=== PATIENT | female | born 1985 | race Caucasian/White ===

== ENCOUNTER → 2016-09-20 | Outpatient (CLI) | payer BC ==
[2016-09-20 10:33] LABS: CLARITY,URINE CLEAR (CLEAR); GLUCOSE, URINE (UA) NEGATIVE (NEG); NITRATE,URINE NEGATIVE (NEG); OCCULT BLOOD,URINE SMALL (NEG); PH,URINE 6.5 (5.0-8.5); PROTEIN,URINE NEGATIVE (NEG); URINE SAMPLE TYPE CLEAN CATCH URINE
[2016-09-20 10:34] LABS: BACTERIA,URINE MODERATE; BILIRUBIN,URINE NEGATIVE (NEG); LEUKOCYTE ESTERASE ,URINE SMALL (NEG); SQUAMOUS EPITHELIAL CELL,UR MODERATE; UROBILINOGEN,URINE 0.2 mg/dL (0.2)
== END ==
LOC: LAB 09:38
PROVIDERS: ATTEND Nurse Practitioner Family
DX: R30.0 Dysuria (principal)
CPT/HCPCS: 81001; 87088

== ENCOUNTER 2016-09-29 07:06 | Day surgery (SDC) | payer BC ==
[~2016-09-29 07:06] MED LIST: LIDOCAINE W/ SODIUM BICARB 0.5 ML SYR ONE; Lactated Ringers 1,000 ML PRIMARY IV ONE; ceFAZolin Inj 2gm (Premix) 50 ML IV ONE
[2016-09-29] MEDS ORDERED: LIDOCAINE MPF 2% - 5 ML (20 MG/1 ML) ONE (07:08)
[2016-09-29] MEDS ORDERED: MIDAZOLAM 5 MG/1 ML ONE (07:09)
[2016-09-29] MEDS ORDERED: fentaNYL Inj 250 MCG/5 ML VIAL ONE (07:09)
[2016-09-29] MEDS ORDERED: ROCURONIUM 10 MG/1 ML - 5 ML VIAL IVP ONE (07:09)
[2016-09-29 07:27] LABS: URINE SPECIFIC GRAVITY - MAN 1.009
[2016-09-29] MEDS ORDERED: BUPIVACAINE 0.5% W/ EPI - 10 ML VIAL ONE (07:44)
[2016-09-29] MEDS ORDERED: ONDANSETRON 4 MG/2 ML VIAL IVP PRN ×2 (08:21→09:33)
[2016-09-29] MEDS ORDERED: NORMAL SALINE 10 ML SYRINGE FLUSH IVP PRN ×2 (08:21→09:33)
[2016-09-29] MEDS ORDERED: KETOROLAC 30 MG/1 ML VIAL ONE (08:28)
[2016-09-29] MEDS ORDERED: SUGAMMADEX SODIUM 200 MG/2 ML VIAL IV ONE (08:28)
[2016-09-29] MEDS ORDERED: Lactated Ringers 1,000 ML PRIMARY IV SCH (08:30)
[2016-09-29] MEDS ORDERED: Lactated Ringers 1,000 ML PRIMARY IV ONE (08:55)
[2016-09-29] MEDS: HYDROmorphone 2 MG/1 ML IVP PRN ×2 (09:30→09:40)
[2016-09-29] MEDS ORDERED: HYDROmorphone 2 MG/1 ML ONE (09:31)
--- NOTE | 2016-09-29 09:32 | GEN.OPNOTE ---
Operative Note Surgery Date: 09/29/16 Preoperative Diagnosis: Incarcerated incisional hernia. Postoperative Diagnosis: Incarcerated incisional hernia. Procedure: Reduction and repair of incarcerated incisional hernia. Surgeon: Nathaniel Mendes MD Anesthesia Provider: John Barriga CRNA Anesthesia Type: General Estimated Blood Loss (mL): 10 Fluids: 1200 mL of crystalloid. 2 g of IV Ancef. 30 mg of IV and 30 mg of IM Toradol at the end of the procedure. Pathology: No specimens. Indications: Symptomatic incisional hernia at the umbilicus. Prior laparoscopy. Findings: Incisional hernia at the umbilicus. A second hernia above. Complications: None. Operative Summary: The patient was taken to the operating suite and placed on the operating table in the supine position. Following induction of general anesthetic the abdomen was prepped and draped in a sterile fashion. A surgical timeout was done. A curvilinear incision was made below the umbilicus. The umbilicus was detached from the fascia. The hernia sac was identified. Dissection was carried down to the fascia. The hernia sac was inverted through the defect. The incarcerated contents were preperitoneal fat. The fascial edges were trimmed back to adequate tissue. There was a second hernia above the first defect. This was also incorporated in the other hernia. All tissue was excised making 1 defect in the midline. The fascial defect was closed down the midline with running #1 Prolene. The repair was solid. The base of the umbilicus was attached to the fascia with a 2-0 Vicryl. Several inverted interrupted 2-0 Vicryl's were placed in the deep dermis. The skin was closed with inverted interrupted 4-0 Monocryl followed by Dermabond, Steri-Strips and a cotton ball in the umbilicus. A sterile bandage was placed over all the above and taped into position. The patient tolerated the entire procedure well without complication. She was taken to the recovery area in stable condition. All counts were correct.
[2016-09-29] MEDS ORDERED: MORPHINE SULFATE 2 MG/1 ML IVP PRN (09:33)
[2016-09-29] MEDS ORDERED: HYDROcodone-APAP 5 MG -325 MG TABLET PO PRN (09:33)
[2016-09-29] MEDS ORDERED: HYDROcodone-APAP 5 MG -325 MG TABLET PO ONE (09:54)
[2016-09-29] MEDS ORDERED: ONDANSETRON 4 MG/2 ML VIAL ONE (11:17)
[2016-09-29 13:11] VITALS: RESP 14
[2016-09-29 13:14] VITALS: TEMP 97
== END 2016-09-29 12:19 | disposition home or self-care (01) ==
LOC: SDSC 07:06
PROVIDERS: ATTEND Surgery
DX: K43.0 Incisional hernia with obstruction, without gangrene (principal)
CPT/HCPCS: 49561; 84703; J0690; J1885; J2704; J3010; J1170; J2001; J2250; J2405; J7120